=== PATIENT | male | born 1945 | race Caucasian/White ===

== ENCOUNTER → 2021-09-27 | Outpatient (REF) | payer MEDICARE, SELFPAY ==
[2021-09-27 17:01] LABS: Absolute Lymphocyte Count 2.05 X10^3/uL (0.83-4.51); Absolute Neutrophil Count 5.5 X10^3/uL (2.0-7.7); Basophil# 0.07 X10^3/uL; Basophil% 0.8 % (0-1); Eosinophils% 3.4 % (0-5); Hematocrit 37.2 % (40-54); Hemoglobin 12.2 g/dL (13.0-16.5); Lymphocyte # 2.05 X10^3/ul (0.83-4.51); Lymphocyte % 23.6 % (19-41); Mean Corp Hgb Conc 32.8 g/dL (32-36); Mean Corpuscular Hgb 30.2 pg (27.0-32.0); Mean Corpuscular Volume 92.1 fL (80-94); Mean Platelet Vol. 8.6 fl (6.2-12.0); Monocyte# 0.71 X10^3/uL; Monocyte% 8.2 % (0-10); NRBC Flagged by Analyzer 0 % (0-5); Neutrophil % 63.2 % (47-70); Platelet Count 359 K/mm3 (150-450); RBC Distribution Width CV 13.5 % (11.6-14.6); RBC Distribution Width SD 46.4 fl (35.1-43.9); Red Blood Count 4.04 M/mm3 (4.6-6.2); White Blood Count 8.7 K/mm3 (4.4-11.0)
[2021-09-27 17:25] LABS: Anion Gap 5 (5-15); BUN 17 mg/dL (7-18); BUN/Creat Ratio 23.7 RATIO (10-20); Chloride 108 mmol/L (98-107); Creatinine, Serum 0.72 mg/dL (0.70-1.30); EST Glomerular Filtration Rate 113 mL/min (>60); Est Glom Filt Rate - Afr Amer 137 mL/min (>60); Glucose 99 mg/dL (74-106); Potassium 3.8 mmol/L (3.5-5.1); Sodium Level 142 mmol/L (136-145)
== END | disposition home or self-care (01) ==
LOC: OLS.ACH 16:22
PROVIDERS: Referring Provider Family Medicine; Visit Provider Family Medicine
DX: R00.0 Tachycardia, unspecified (principal); D64.9 Anemia, unspecified; I49.9 Cardiac arrhythmia, unspecified
CPT/HCPCS: 36415; 80048; 85025

== ENCOUNTER → 2021-10-01 | Outpatient (REF) | payer MEDICARE, SELFPAY ==
[2021-10-01 08:50] LABS: Mucous, Urine 0 SEEN /hpf (<or=2+); Red Blood Cells-Urine 0 SEEN /hpf (0-5); Squamous Epithelial Cells - UA 0 SEEN /hpf (0-5)
[2021-10-01 08:55] LABS: Color, Urine Yellow (Yellow); Glucose, Dipstick Normal (Normal); Ketone-Dipstick Negative (Negative); Leukocyte Esterase-Dipstick 500 /ul (Negative); Nitrite-Dipstick Negative (Negative); Occult Blood-Urine 150 /ul (Negative); Protein-Dipstick 15 mg/dl (Negative); Urine Bilirubin Dipstick Negative (Negative); Urine Clarity Sl. Cloudy (Clear); Urine Urobilinogen Normal (Normal)
[2021-10-01 08:59] LABS: Red Blood Count 4.02 M/mm3 (4.6-6.2); White Blood Count 8.8 K/mm3 (4.4-11.0)
[2021-10-01 09:00] LABS: Absolute Lymphocyte Count 2.53 X10^3/uL (0.83-4.51); Absolute Neutrophil Count 4.9 X10^3/uL (2.0-7.7); Basophil# 0.08 X10^3/uL; Basophil% 0.9 % (0-1); Eosinophil# 0.48 X10^3/uL; Eosinophils% 5.5 % (0-5); Hematocrit 37.4 % (40-54); Hemoglobin 12.2 g/dL (13.0-16.5); Lymphocyte # 2.53 X10^3/ul (0.83-4.51); Lymphocyte % 28.8 % (19-41); Mean Corp Hgb Conc 32.6 g/dL (32-36); Mean Corpuscular Hgb 30.3 pg (27.0-32.0); Monocyte# 0.69 X10^3/uL; Monocyte% 7.9 % (0-10); NRBC Flagged by Analyzer 0 % (0-5); Neutrophil # 4.88 X10^3/uL (2.7-7.7); Neutrophil % 55.6 % (47-70); Platelet Count 407 K/mm3 (150-450); RBC Distribution Width CV 13.7 % (11.6-14.6); RBC Distribution Width SD 46.5 fl (35.1-43.9)
[2021-10-01 09:10] LABS: Bacteria 3+ /hpf (None Seen); White Blood Cells 10-25 SEEN /hpf (0-5)
[2021-10-01 09:17] LABS: BUN 16 mg/dL (7-18); EST Glomerular Filtration Rate 139 mL/min (>60); Glucose 83 mg/dL (74-106)
[2021-10-01 09:18] LABS: ALB/GLOB Ratio 0.7 RATIO (0.9-2.4); AST(SGOT) 35 U/L (15-37); Alanine Aminotransfer ALT/SGPT 33 U/L (16-61); Albumin, Serum 2.4 g/dL (3.2-5.0); Alkaline Phosphatase 87 U/L (45-117); Anion Gap 4 (5-15); BUN/Creat Ratio 26.7 RATIO (10-20); Calcium,Total 8.9 mg/dL (8.5-10.1); Chloride 109 mmol/L (98-107); Est Glom Filt Rate - Afr Amer 168 mL/min (>60); Globulin 3.6 g/dL (2.2-4.2); Sodium Level 142 mmol/L (136-145)
== END | disposition home or self-care (01) ==
LOC: OLS.ACH 05:00
PROVIDERS: Visit Provider Family Medicine
DX: R53.81 Other malaise (principal); R53.1 Weakness; D64.9 Anemia, unspecified
CPT/HCPCS: 36415; 80053; 81001; 85025; 87077; 87086; 87088

== ENCOUNTER 2021-10-06 08:05 | Outpatient (REF) | payer MEDICARE, SELFPAY ==
[2021-10-06 09:27] LABS: Hemoglobin A1c 5.7 % (3.8-5.6)
[2021-10-08 08:31] LABS: Vitamin D,25 Hydroxy 88.3 ng/mL
== END 2021-10-06 23:59 | disposition home or self-care (01) ==
LOC: OLS.ACH 08:05
PROVIDERS: Visit Provider Family Medicine
DX: R53.81 Other malaise (principal); E55.9 Vitamin D deficiency, unspecified; D64.9 Anemia, unspecified; Z79.899 Other long term (current) drug therapy
CPT/HCPCS: 36415; 82306; 83036

== ENCOUNTER 2021-11-26 13:28 | Emergency (ER) | payer MEDICARE, OTHER, SELFPAY ==
[2021-11-26 13:30] VITALS: TEMP 37.6; BMI 24.6
[2021-11-26 13:42] VITALS: BP 176/89; PULSE 110; RESP 16; O2SAT 92
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
--- NOTE | 2021-11-26 14:15 | EKG12_ITS ---
Test Reason : FALL Blood Pressure : / mmHG Vent. Rate : 111 BPM Atrial Rate : 111 BPM P-R Int : 136 ms QRS Dur : 064 ms QT Int : 324 ms P-R-T Axes : 067 034 071 degrees QTc Int : 440 ms Sinus tachycardia with occasional Premature ventricular complexes Nonspecific ST abnormality Abnormal ECG Confirmed by SAROJ STEVENSON, IVETTE ([id number]), metropolitan editor DIEUDONNE ROCKWELL ([id number]) on 11/27/2021 8:58:46 AM Referred By: Confirmed By:IVETTE KYLE MD
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
[2021-11-26] MEDS: Morphine 4 MG/ML Syringe IV (14:35)
[2021-11-26] MEDS: Ondansetron 4 MG/2 ML Vial IV (14:35)
[2021-11-26 14:40] LABS: Absolute Lymphocyte Count 2.77 X10^3/uL (0.83-4.51); Absolute Neutrophil Count 6.9 X10^3/uL (2.0-7.7); Basophil# 0.06 X10^3/uL; Basophil% 0.6 % (0-1); Eosinophil# 0.11 X10^3/uL; Hematocrit 43.1 % (40-54); Hemoglobin 13.9 g/dL (13.0-16.5); Lymphocyte # 2.77 X10^3/ul (0.83-4.51); Lymphocyte % 25.8 % (19-41); Mean Corp Hgb Conc 32.3 g/dL (32-36); Mean Corpuscular Hgb 30.2 pg (27.0-32.0); Mean Corpuscular Volume 93.5 fL (80-94); Mean Platelet Vol. 10.1 fl (6.2-12.0); Monocyte# 0.86 X10^3/uL; NRBC Flagged by Analyzer 0 % (0-5); Neutrophil # 6.89 X10^3/uL (2.7-7.7); Neutrophil % 64.2 % (47-70); Platelet Count 214 K/mm3 (150-450); RBC Distribution Width CV 13.5 % (11.6-14.6); RBC Distribution Width SD 46.5 fl (35.1-43.9); Red Blood Count 4.61 M/mm3 (4.6-6.2); White Blood Count 10.7 K/mm3 (4.4-11.0)
[2021-11-26 14:42] VITALS: TEMP 38.1
[2021-11-26 14:50] LABS: International Normalized Ratio 1.1; Partial Thromboplast Time 27.8 Seconds (24.1-36.2); Prothrombin Time (Protime)PT. 13.5 SECONDS (11.7-14.9)
[2021-11-26 14:56] LABS: AST(SGOT) 43 U/L (15-37); Alanine Aminotransfer ALT/SGPT 42 U/L (16-61); Albumin, Serum 3.5 g/dL (3.2-5.0); Alkaline Phosphatase 133 U/L (45-117); Anion Gap 4 (5-15); BUN 28 mg/dL (7-18); BUN/Creat Ratio 27.5 RATIO (10-20); Calcium,Total 9.2 mg/dL (8.5-10.1); Chloride 115 mmol/L (98-107); Creatinine, Serum 1.02 mg/dL (0.70-1.30); EST Glomerular Filtration Rate 75 mL/min (>60); Est Glom Filt Rate - Afr Amer 91 mL/min (>60); Estimated Creatinine Clearance 59.69 ml/min; Globulin 3.6 g/dL (2.2-4.2); Glucose 130 mg/dL (74-106); Potassium 4.2 mmol/L (3.5-5.1); Protein, Total 7.1 g/dL (6.4-8.2); Sodium Level 145 mmol/L (136-145)
[2021-11-26] MEDS: Acetaminophen 650 MG/20 ML UDC PO (15:22)
[2021-11-26 15:27] LABS: Mucous, Urine 0 SEEN /hpf (<or=2+)
[2021-11-26 16:05] LABS: Color, Urine Yellow (Yellow); Glucose, Dipstick Normal (Normal); Ketone-Dipstick Negative (Negative); Leukocyte Esterase-Dipstick 100 /ul (Negative); Nitrite-Dipstick Negative (Negative); Occult Blood-Urine 250 /ul (Negative); Protein-Dipstick 30 mg/dl (Negative); Specific Gravity, Urine 1.015 (1.002-1.030); Urine Bilirubin Dipstick Negative (Negative); Urine Clarity Sl. Cloudy (Clear); Urine Urobilinogen Normal (Normal); Urine pH 6.5 (5.0 - 8.0)
--- NOTE | 2021-11-26 16:13 | RAD_ITS ---
STUDY: X-RAY - RIGHT KNEE REASON FOR EXAM: Male, 76 years old. pt fell last night. x-rays done at [facility] showed bilateral hip fractures. patient nonverbal. TECHNIQUE: 2 view(s) of the knee. COMPARISON: None. FINDINGS: Diffuse osteopenia. Obliquely oriented fracture of the distal femoral metaphysis just above knee replacement. There is approximately 2.3 cm of displacement with moderate anterior apical angulation. Old fracture of the proximal fibula with callus noted. Normal proximal tibiofibular articulation. Knee replacement is in gross alignment. The soft tissue structures are unremarkable. RAD/Knee 1 or 2 Views IMPRESSION: 1. Distal femur/periimplant fracture. Electronically Signed: Pillo Landers MD (Brooks) at 16:32 EDT Reading Location ID and State: / [place] , Service support ,
[2021-11-26 16:14] LABS: Bacteria 1+ /hpf (None Seen); Red Blood Cells-Urine > 100 SEEN /hpf (0-5); Squamous Epithelial Cells - UA 0-5 SEEN /hpf (0-5); White Blood Cells 10-25 SEEN /hpf (0-5)
[2021-11-26] MEDS: Ceftriaxone 1 GM/50 ML BAG IV (17:06)
[2021-11-26 17:08] VITALS: BP 95/54; PULSE 102; RESP 17; O2SAT 99
[2021-11-26 17:18] LABS: Lactic Acid 1.7 mmol/L (0.4-1.9)
--- NOTE | 2021-11-26 18:20 | ED.RN ---
Report called to Gala at [facility]. Nurse states her daughter has already updated the nurse
== END 2021-11-26 18:29 | disposition home or self-care (01) ==
PROVIDERS: Emergency Provider Emergency Medicine; PCP Family Medicine; Visit Provider Emergency Medicine
DX: S72.401A Unspecified fracture of lower end of right femur, initial encounter for closed fracture (principal); S72.115A Nondisplaced fracture of greater trochanter of left femur, initial encounter for closed fracture; G30.9 Alzheimer's disease, unspecified; N39.0 Urinary tract infection, site not specified; E78.2 Mixed hyperlipidemia; E55.9 Vitamin D deficiency, unspecified; M19.90 Unspecified osteoarthritis, unspecified site; W19.XXXA Unspecified fall, initial encounter; Z79.899 Other long term (current) drug therapy; Z79.82 Long term (current) use of aspirin
CPT/HCPCS: 51702; 72192; 73560; 80053; 81001; 83605; 85025; 85610; 85730; 86850; 86900; 86901; 87040; 87086; 87428; 93005; 96365; 96366; 96375; 99285; J7030; J7050; A4216; J2405

== ENCOUNTER 2022-02-09 01:22 | Emergency (ER) | payer MEDICARE, OTHER, SELFPAY ==
[2022-02-09 01:25] VITALS: BP 115/65; PULSE 91; RESP 15; TEMP 37.1; O2SAT 92; BMI 25.0
--- NOTE | 2022-02-09 01:37 | CT_ITS ---
EXAM: CT CERVICAL SPINE WITHOUT INTRAVENOUS CONTRAST CLINICAL INDICATION: fall TECHNIQUE: Helically acquired images were obtained of the cervical spine without intravenous contrast. 2D reformatted images were reviewed. CTDIvol = ( 13.70 ) mGy, DLP = ( 280.50 ) mGycm This CT exam was performed using one or more of the following dose reduction techniques: automated exposure control, adjustment of the mA and/or kV according to patient size, and/or use of iterative reconstruction technique. This report was created using [employer] report [employer] technology. COMPARISON: None. FINDINGS: VERTEBRAE: No evidence of acute or healing fracture or malalignment. No traumatic subluxation. No discrete lytic or blastic abnormality. Normal craniocervical junction and cervicothoracic junction. DISCS/SPINAL CANAL/NEURAL FORAMINA: Multilevel spine degenerative changes. No critical central canal stenosis or apical pneumothorax. SOFT TISSUES: Unremarkable. No prevertebral soft tissue swelling. VASCULATURE: Atherosclerotic calcifications of the internal carotid arteries of the neck. LYMPH NODES: Unremarkable. No cervical adenopathy. LUNG APICES: Ill-defined increased density at the posterior aspect of the right upper lobe. CT/Spine Cervical without Contras IMPRESSION: No acute or healing fracture or malalignment. Ill-defined increased density at the posterior aspect of the right upper lobe. Consider further investigation with dedicated chest CT. Electronically Signed: Delfino Lutz MD at 2:42 EDT ,
--- NOTE | 2022-02-09 01:37 | RAD_ITS ---
EXAM: XR PELVIS, 1 OR 2 VIEWS CLINICAL INDICATION: fall TECHNIQUE: Frontal view of the pelvis. This report was created using [employer] report generation technology. COMPARISON: None. FINDINGS: BONES/JOINTS: Acute right intertrochanteric/subtrochanteric fracture. No other acute or healing fracture or malalignment. Diffuse osteopenia. Degenerative changes at the SI joints, lower lumbar spine, and pubic symphysis. No destructive or sclerotic lesions. Note that overlapping bowel shadows may however obscure fine detail. SOFT TISSUES: Unremarkable. No soft tissue swelling or gas. VASCULATURE: Vascular calcifications of the pelvis. GASTROINTESTINAL TRACT: Stool and gas within colon can be seen with constipation. RAD/Pelvis 1 or 2 Views IMPRESSION: Acute right intertrochanteric/subtrochanteric fracture. Electronically Signed: Delfino Lutz MD at 2:32 EDT ,
--- NOTE | 2022-02-09 01:37 | CT_ITS ---
EXAM: CT HEAD WITHOUT INTRAVENOUS CONTRAST CLINICAL INDICATION: fall TECHNIQUE: Multiple axial images were obtained of the head without intravenous contrast. CTDIvol = ( 23.63 ) mGy, DLP = ( 941.53 ) mGycm This CT exam was performed using one or more of the following dose reduction techniques: automated exposure control, adjustment of the mA and/or kV according to patient size, and/or use of iterative reconstruction technique. This report was created using [employer] report generation technology. COMPARISON: None. FINDINGS: BRAIN AND EXTRA-AXIAL SPACES: No acute intracranial hemorrhage, mass effect or edema. No evidence of acute cortical stroke. Periventricular small vessel ischemic change. No midline shift or hydrocephalus. Diffuse parenchymal atrophy. Posterior fossa structures are unremarkable. Basal cisterns are patent. BONES/JOINTS: Unremarkable. No discrete lytic or blastic abnormalities. VASCULATURE: Atherosclerotic calcifications of the carotid siphons and vertebrobasilar arteries. SINUSES: Unremarkable as visualized. Clear. MASTOID AIR CELLS: Visualized sinuses and mastoid air cells are clear. ORBITS: Visualized globes, extraocular muscles, optic nerves and retrobulbar fat appear unremarkable. CT/Brain/Head without Contrast IMPRESSION: 1. No evidence of acute intracranial pathology. 2. Diffuse involutional changes and chronic ischemic small vessel white matter disease. Electronically Signed: Delfino Lutz MD at 2:37 EDT ,
--- NOTE | 2022-02-09 01:47 | EDS_ITS ---
HPI History of Present Illness Chief Complaint: Fall Narrative Narrative: Patient is a 76-year-old male from the [facility] who is nonverbal with past medical history of muscular contractures and advanced Alzheimer's dementia. Nursing states he has a low bed and walked in to find him fallen off of this and in an awkward position. They state his neck was contorted. They felt that he withdrew some to palpation of his shoulder. Therefore with the unwitnessed fall and concern for underlying injury he was sent in for evaluation. As the patient is nonverbal he cannot offer any further history. [facility] states patient is at his baseline mental status [facility] Medical History Alzheimer disease Anemia BPH loc w/o ur obs/LUTS Cognitive communication deficit Contracture of muscle Debility Dementia Intracranial injury with loss of consciousness Major depression Mixed hyperlipidemia Muscle weakness Osteoarthritis Polyneuropathy Pressure ulcer of left buttock Pressure ulcer of sacral region PVD (peripheral vascular disease) Spinal stenosis Ventricular premature depolarization Vitamin D deficiency Home Medications acetaminophen 500 mg tablet 1,000 mg PO BID 11/26/21 [History Last Taken 11/26/21] aspirin 325 mg tablet 325 mg PO DAILY HEART HEALTH 11/26/21 [History Last Taken 11/26/21] atorvastatin 10 mg tablet 10 mg PO QHS 11/26/21 [History Last Taken 11/25/21] bisacodyl 10 mg rectal suppository 10 mg MO DAILY PRN Constipation 11/26/21 [History Last Taken 11/24/21] cholecalciferol (vitamin D3) 125 mcg (5,000 unit) capsule 125 mcg PO DAILY 11/26/21 [History Last Taken 11/26/21] dextromethorphan-guaifenesin 10 mg-100 mg/5 mL oral liquid (Cassy-Tussin DM) 10 ml PO Q6H PRN Cough 11/26/21 [History Last Taken 11/20/21] duloxetine 20 mg capsule,delayed release (Cymbalta) 20 mg PO DAILY 11/26/21 [History Last Taken 11/26/21] ferrous sulfate 325 mg (65 mg iron) tablet 325 mg PO BID 11/26/21 [History Last Taken 11/26/21] magnesium hydroxide 400 mg/5 mL oral suspension (Milk of Magnesia) 30 ml PO DAILY PRN Constipation 11/26/21 [History Last Taken 11/23/21] multivitamin with iron-mineral 1 tab PO DAILY 11/26/21 [History Last Taken 11/26/21] sennosides 8.6 mg-docusate sodium 50 mg tablet (Senexon-S) 1 tab-cap PO QHS PRN PRN Constipation 11/26/21 [History Last Taken Unknown] tamsulosin 0.4 mg capsule (Flomax) 0.4 mg PO DAILY 11/26/21 [History Last Taken 11/26/21] zinc gluconate 100 mg tablet 220 mg PO DAILY 11/26/21 [History Last Taken 11/26/21] ascorbic acid (vitamin C) 500 mg tablet (Vitamin C) 500 mg PO DAILY 02/09/22 [History Last Taken Unknown] docusate sodium 100 mg capsule (Colace) 100 mg PO DAILY 02/09/22 [History Last Taken Unknown] oxycodone 5 mg capsule 5 mg PO Q4H PRN PRN pain 02/09/22 [History Last Taken Unknown] Allergy/AdvReac Type Severity Reaction Status Date / Time meloxicam Allergy Other Verified 02/09/22 01:35 oxaprozin [From Daypro] Allergy Other Verified 02/09/22 01:35 Surgical History Presence of right artificial knee joint Social History (Updated 11/26/21 @ 14:[address] Randell Gregorio DO) housing: [facility] Smoking Status: Unknown if ever smoked ROS ROS ED ROS Narrative Unable to obtain review of systems as patient is nonverbal and has history of dementia EXAM Physical Exam Const Vital Signs: 02/09/22 01:25 02/09/22 01:28 Temperature 98.7 F Temperature Source Temporal Pulse Rate 91 Respiratory Rate 15 Respiratory Effort Normal Non-Labored Respiratory Depth Normal Respiratory Pattern Normal Blood Pressure 115/65 Blood Pressure Mean 81 Pulse Ox 92 Oxygen Delivery Method Room Air Room Air Positive well nourished and well developed General Appearance ED: well developed HEENT HEENT Narrative: No signs of depressed or basilar skull fracture Eyes PERRL and EOMs intact bilaterally Neck Neck Narrative: C-collar in place without bony deformity or step-off of the cervical spine Chest Wall palpation of chest normal Resp normal respiratory effort and clear to auscultation bilaterally Cardio regular rate and regular rhythm GI normal to inspection, nondistended, normoactive bowel sounds, non-tender and non-distended Auscultation: normoactive bowel sounds Palpation: soft Back/Spine Back/Spine Narrative: No bony deformity or step-off of the thoracic or lumbar spine no midline pain with palpation Extremity Extremity Narrative: Pelvis is stable there. Patient has chronic contractures of his arms and legs secondary to his past medical history of muscular contractures. There is no obvious bony deformity or joint effusion. The patient does not withdrawal or wince with pain with palpation of any joint. There are no overlying soft tissue changes to suggest trauma or infection. Neuro CN's II-XII intact bilaterally Neuro Narrative: Patient is at his baseline mental status with no new or focal deficits Psych Psych Narrative: Patient has a flat/depressed affect Skin no rashes or lesions noted MDM MDM MDM Narrative Medical decision making narrative: Patient presented to the ER with stable vitals and at his baseline mental status. The mechanism of injury is low but as patient cannot provide any history I did elect to perform CTs of his head and cervical spine. These showed chronic age-related findings but no acute trauma which does fit his exam. An x- ray of the pelvis was obtained which reported a right intertrochanteric fracture but clinically his exam does not correlate with this. Therefore I elected to perform a noncontrast CAT scan which contradicted the x-ray and fits with his clinical exam that there is no acute fracture or dislocation of the hip. Therefore at this time as patient has no findings of trauma by physical exam or imaging study there is no need to keep him in the hospital any longer. Patient is safe for discharge back to his extended care facility. Radiography Diagnostic Testing: Clinical Impression(s) from Imaging Studies Brain CT 02/09/22 01:37 IMPRESSION: 1. No evidence of acute intracranial pathology. 2. Diffuse involutional changes and chronic ischemic small vessel white matter disease. Electronically Signed: Delfino Lutz MD at 2:37 EDT , Cervical Spine CT 02/09/22 01:37 IMPRESSION: No acute or healing fracture or malalignment. Ill-defined increased density at the posterior aspect of the right upper lobe. Consider further investigation with dedicated chest CT. Electronically Signed: Delfino Lutz MD at 2:42 EDT , Pelvis X-Ray 02/09/22 01:37 IMPRESSION: Acute right intertrochanteric/subtrochanteric fracture. Electronically Signed: Delfino Lutz MD at 2:32 EDT , Lower Extremity CT 02/09/22 02:48 IMPRESSION: 1. No acute fracture or dislocation. 2. Mild increased stool with perirectal inflammatory changes, correlate for fecal impaction and stercoral colitis. 3. Nonspecific hyperattenuating contents along the cutaneous surface of the left scrotum and groin. Electronically Signed: Victor M Rubin MD at 3:16 EDT , Pelvis x-ray as interpreted by the emergency medicine physician shows chronic age-related arthritic changes without acute fracture or dislocation Discharge Plan Triage Chief Complaint: Fall ED Provider: Delfino Hyatt Dx/Rx/DC Orders Clinical Impression: Accidental fall, Contracture of muscle, Alzheimer's dementia Instructions: ED Fall Prevention Prescriptions: No Action zinc gluconate 100 mg Tablet 220 mg PO DAILY atorvastatin 10 mg Tablet 10 mg PO QHS dextromethorphan-guaifenesin [Cassy-Tussin DM] 10-100 mg/5 mL Liquid 10 ml PO Q6H PRN (Reason: Cough) sennosides-docusate sodium [Senexon-S] 8.6-50 mg Tablet 1 tab-cap PO QHS PRN PRN (Reason: Constipation) acetaminophen 500 mg Tablet 1,000 mg PO BID magnesium hydroxide [Milk of Magnesia] 400 mg/5 mL Suspension 30 ml PO DAILY PRN (Reason: Constipation) tamsulosin [Flomax] 0.4 mg Capsule 0.4 mg PO DAILY bisacodyl 10 mg Suppository 10 mg MO DAILY PRN (Reason: Constipation) cholecalciferol (vitamin D3) 125 mcg (5,000 unit) Capsule 125 mcg PO DAILY Multi M Vitamin Tablet 1 tab PO DAILY duloxetine [Cymbalta] 20 mg Capsule,Delayed Release(Dr/Ec) 20 mg PO DAILY aspirin 325 mg Tablet 325 mg PO DAILY ferrous sulfate [FerrouSul] 325 mg (65 mg iron) Tablet 325 mg PO BID ascorbic acid (vitamin C) [Vitamin C] 500 mg Tablet 500 mg PO DAILY docusate sodium [Colace] 100 mg Capsule 100 mg PO DAILY oxycodone 5 mg capsule 5 mg PO Q4H PRN PRN (Reason: pain) Primary Care Provider: Tyler Brooks Referrals: Tyler Brooks DO [Primary Care Provider] - Disposition Disposition: Home, Self Care
--- NOTE | 2022-02-09 02:48 | CT_ITS ---
EXAM: CT Hip W/O Contrast Injection HISTORY: fall TECHNIQUE: CT Hip W/O Contrast Injection A radiation dose optimization technique was used for this scan. COMPARISON: None. LIMITATIONS: None. FINDINGS: No acute fracture or dislocation. Scattered colonic diverticulosis without discrete evidence of acute diverticulitis. Mild increased stool in the partially visualized colon and rectum. Mild rectal wall thickening and perirectal fat stranding. Atherosclerotic calcifications. Hyperattenuating structure along the cutaneous surface between the scrotum and left groin. CT/Extremity Lower without Contra IMPRESSION: 1. No acute fracture or dislocation. 2. Mild increased stool with perirectal inflammatory changes, correlate for fecal impaction and stercoral colitis. 3. Nonspecific hyperattenuating contents along the cutaneous surface of the left scrotum and groin. Electronically Signed: Victor M Rubin MD at 3:16 EDT ,
[2022-02-09 03:28] VITALS: BP 115/65; PULSE 78; RESP 16
== END 2022-02-09 05:44 ==
PROVIDERS: Emergency Provider Emergency Medicine; PCP Family Medicine; Visit Provider Emergency Medicine
DX: M62.462 Contracture of muscle, left lower leg (principal); F02.80 Dementia in other diseases classified elsewhere, unspecified severity, without behavioral disturbance, psychotic disturbance, mood disturbance, and anxiety; G30.9 Alzheimer's disease, unspecified; M62.461 Contracture of muscle, right lower leg; M62.422 Contracture of muscle, left upper arm; M62.421 Contracture of muscle, right upper arm; E78.2 Mixed hyperlipidemia; E55.9 Vitamin D deficiency, unspecified; Z79.82 Long term (current) use of aspirin; Z79.899 Other long term (current) drug therapy; W19.XXXA Unspecified fall, initial encounter
CPT/HCPCS: 70450; 72125; 72170; 73700; 99284

== ENCOUNTER 2022-02-18 04:00 | Outpatient (REF) | payer SELFPAY ==
[2022-02-18 08:02] LABS: Absolute Neutrophil Count 3.2 X10^3/uL (2.0-7.7); Basophil# 0.09 X10^3/uL; Basophil% 1.3 % (0-1); Eosinophil# 0.42 X10^3/uL; Eosinophils% 5.9 % (0-5); Hematocrit 38.6 % (40-54); Hemoglobin 12.3 g/dL (13.0-16.5); Lymphocyte % 39.1 % (19-41); Mean Corp Hgb Conc 31.9 g/dL (32-36); Mean Corpuscular Hgb 27.7 pg (27.0-32.0); Mean Corpuscular Volume 86.9 fL (80-94); Mean Platelet Vol. 10.1 fl (6.2-12.0); Monocyte% 8.4 % (0-10); NRBC Flagged by Analyzer 0 % (0-5); Neutrophil # 3.24 X10^3/uL (2.7-7.7); Platelet Count 243 K/mm3 (150-450); RBC Distribution Width CV 15.9 % (11.6-14.6); RBC Distribution Width SD 50.2 fl (35.1-43.9); Red Blood Count 4.44 M/mm3 (4.6-6.2); White Blood Count 7.2 K/mm3 (4.4-11.0)
[2022-02-18 08:17] LABS: Hemoglobin A1c 5.6 % (3.8-5.6)
[2022-02-18 08:18] LABS: Vitamin D,25 Hydroxy 67.8 ng/mL
[2022-02-18 08:28] LABS: ALB/GLOB Ratio 0.9 RATIO (0.9-2.4); AST(SGOT) 26 U/L (15-37); Alanine Aminotransfer ALT/SGPT 31 U/L (16-61); Albumin, Serum 3.1 g/dL (3.2-5.0); Alkaline Phosphatase 133 U/L (45-117); Anion Gap 11 (5-15); BUN 20 mg/dL (7-18); BUN/Creat Ratio 27.9 RATIO (10-20); Calcium,Total 9.2 mg/dL (8.5-10.1); Chloride 106 mmol/L (98-107); Cholesterol 108 mg/dL (200); Creatinine, Serum 0.72 mg/dL (0.70-1.30); EST Glomerular Filtration Rate 113 mL/min (>60); Est Glom Filt Rate - Afr Amer 136 mL/min (>60); Globulin 3.6 g/dL (2.2-4.2); Glucose 86 mg/dL (74-106); High Density Lipoprotein 32 mg/dL; Potassium 3.9 mmol/L (3.5-5.1); Protein, Total 6.7 g/dL (6.4-8.2); Sodium Level 142 mmol/L (136-145); Thyroid Stim Hormone (TSH) 0.83 uIU/mL (0.358-3.74); Triglycerides 111 mg/dL; Very Low Density Lipoprotein 22 mg/dL (5-40)
== END 2022-02-18 23:59 | disposition home or self-care (01) ==
LOC: OLS.ACH 04:00
PROVIDERS: PCP Family Medicine; Referring Provider Family Medicine; Visit Provider Family Medicine
DX: E55.9 Vitamin D deficiency, unspecified (principal); G30.9 Alzheimer's disease, unspecified; E78.2 Mixed hyperlipidemia; D64.9 Anemia, unspecified; L89.156 Pressure-induced deep tissue damage of sacral region
CPT/HCPCS: 36415; 80053; 80061; 82306; 83036; 84443; 85025